=== PATIENT | female | born 1950 | race Caucasian/White ===

== ENCOUNTER 2019-07-05 12:04 | Inpatient (IN) | payer MEDICARE, MEDICAID ==
[~2019-07-05] VITALS: Ht 147.3 cm; Wt 60.7 kg
[2019-07-05 13:09] LABS: Hematocrit 44.3 % (36.0-46.0); Mean Corpuscular Hemoglobin 27.5 pg (28.0-32.0); Mean Corpuscular Hgb Conc. 33.9 g/dL (32.0-36.0); Platelet Count (auto) 308 10^3/uL (140-450); Red Blood Cells 5.47 10^6/uL (4.0-5.20); Red Cell Distribution Width 14.6 % (11.8-14.3)
[2019-07-05 13:15] LABS: White Blood Cell 32.3 10^3/uL (4.4-10.8)
[2019-07-05] MEDS ORDERED: LIDOCAINE VISCOUS 2% 15ML UD PO ONE (13:15)
[2019-07-05] MEDS ORDERED: ALUM & MAG HYDROX-SIMETH LIQ(MAALOX) 30 ML PO ONE (13:15)
[2019-07-05 13:16] LABS: Basophils % (manual) 0 (0.0-2.0); Blast Cells 0; Myelocytes % 0; Promyelocytes % 0; Reactive Lymphocytes 0
[2019-07-05 13:30] LABS: Albumin 3.6 g/dL (3.4-5.0); Anion Gap 10 (5-15); Blood Urea Nitrogen 21 mg/dL (7-18); Calcium 9.8 mg/dL (8.5-10.1); Carbon Dioxide 25 mmol/L (21-32); Chloride 97 mmol/L (98-107); Glucose 142 mg/dL (74-106); Lipase 60 U/L (73-393); Potassium 4.2 mmol/L (3.5-5.1); Sodium 132 mmol/L (136-145)
[2019-07-05] MEDS ORDERED: LORazepam 2MG/ML-1ML VIAL IM ONE (13:30)
[2019-07-05 13:36] LABS: Alanine Aminotransferase 36 U/L (13-56); Alkaline Phosphatase 105 U/L (45-117); Aspartate Aminotransferase 29 U/L (15-37); BUN/Creatinine Ratio 18.4; Bilirubin, Total 0.7 mg/dL (0.2-1.0); GFR African American 61 mL/min; GFR Non-African American 50 mL/min; Total Protein 8.1 g/dL (6.4-8.2)
[2019-07-05 14:41] LABS: Band Neutrophils % (manual) 6; Eosinophils % (manual) 1 (0-7); Lymphocytes % (manual) 2 (10.0-50.0)
[2019-07-05 14:50] LABS: Metamyelocytes % 2; Monocytes % (manual) 9 (0-12)
[2019-07-05] MEDS ORDERED: PIPERACILLIN-TAZOB 3.375GM 100 ML IV ONE (16:00)
[2019-07-05] MEDS ORDERED: SODIUM CHLORIDE 0.9% 1,000 ML IV ONE (16:15)
[2019-07-05] MEDS ORDERED: ONDANSETRON HCL 4 MG/2 ML VIAL IV PRN (16:15)
[2019-07-05] MEDS ORDERED: NITROGLYCERIN 0.4 MG SL TAB SL PRN (16:15)
[2019-07-05] MEDS ORDERED: POTASSIUM CHLORIDE 10 MEQ in SODIUM CHLORIDE 0.9% 1,000 ML IV SCH (16:15)
[2019-07-05] MEDS ORDERED: MORPHINE SULF INJ 2 MG/ML SYRINGE 1ML IV PRN (16:15)
[2019-07-05 16:45] LABS: INR 1.19 (0.9-1.15); Partial Thromboplastin Time 33.9 sec (23.64-32.05)
[2019-07-05 16:52] LABS: Lactic Acid w/Reflex 2.1 mmol/L (0.4-2.0)
[2019-07-05 20:00] VITALS: BP 123/73
[2019-07-05] MEDS: MORPHINE SULF INJ 2 MG/ML SYRINGE 1ML IV PRN (20:55)
[2019-07-05] MEDS: metroNIDAZOLE 500MG/100ML 100 ML IV SCH (21:43)
[2019-07-05 22:00] VITALS: BP 123/73
[2019-07-06 05:00] VITALS: BP 114/53
[2019-07-06] MEDS: metroNIDAZOLE 500MG/100ML 100 ML IV SCH ×3 (05:29→21:39)
[2019-07-06 08:00] VITALS: BP 113/69
[2019-07-06 08:14] LABS: Hemoglobin 13.9 g/dL (12.2-16.2); Mean Corpuscular Hemoglobin 26.9 pg (28.0-32.0); Red Blood Cells 5.18 10^6/uL (4.0-5.20)
[2019-07-06 08:15] LABS: Hematocrit 42.1 % (36.0-46.0); Mean Corpuscular Hgb Conc. 33.2 g/dL (32.0-36.0); Mean Corpuscular Volume 81.2 fL (80.0-100.0); Platelet Count (auto) 277 10^3/uL (140-450); Red Cell Distribution Width 14.9 % (11.8-14.3); White Blood Cell 25.8 10^3/uL (4.4-10.8)
[2019-07-06 08:23] LABS: Albumin 2.8 g/dL (3.4-5.0); Calcium 8.7 mg/dL (8.5-10.1); Potassium 4.5 mmol/L (3.5-5.1)
[2019-07-06 08:29] LABS: BUN/Creatinine Ratio 18.1; Bilirubin, Total 0.6 mg/dL (0.2-1.0); Total Protein 6.8 g/dL (6.4-8.2)
[2019-07-06 08:34] LABS: Basophils % (manual) 0 (0.0-2.0); Blast Cells 0; Eosinophils % (manual) 0 (0-7); Metamyelocytes % 0; Promyelocytes % 0; Reactive Lymphocytes 0
[2019-07-06 09:16] LABS: Band Neutrophils % (manual) 6; Lymphocytes % (manual) 3 (10.0-50.0); Monocytes % (manual) 5 (0-12); Myelocytes % 1
[2019-07-06] MEDS: cefTRIAXone 1GM/50ML D5W 50 ML IV SCH (09:25)
[2019-07-06] MEDS: MORPHINE SULF INJ 2 MG/ML SYRINGE 1ML IV PRN (09:26)
[2019-07-06] MEDS ORDERED: D5W/LACTATED RINGERS 1,000 ML IV SCH (10:00)
[2019-07-06] MEDS: THIAMINE 100mg/ml INJ (200mg/2ml VIAL) IV SCH (10:31)
[2019-07-06] MEDS: PANTOPRAZOLE 40 MG/10 ML VIAL INJ IV SCH (10:31)
[2019-07-06] MEDS: FOLIC ACID 1 MG in D5W 5% 50 ML IV SCH (11:20)
[2019-07-06 12:00] VITALS: BP 118/69
[2019-07-06 13:48] LABS: INR 1.24 (0.9-1.15); Partial Thromboplastin Time 33.6 sec (23.64-32.05)
[2019-07-06] MEDS ORDERED: ceFAZolin 1GM/50ML 50 ML IV ONE (13:54)
[2019-07-06] MEDS ORDERED: fentaNYL CITRATE 100 MCG/2 ML VL ONE (14:10)
[2019-07-06] MEDS ORDERED: SUCCINYLCHOLINE CHLORIDE 20 MG/ML 10ML VIAL IV ONE (14:10)
[2019-07-06] MEDS ORDERED: ROCURONIUM 10MG/ML 10ML VIAL IV ONE (14:16)
[2019-07-06] MEDS ORDERED: METOCLOPRAMIDE HCL 5MG/ml INJ 2ml VIAL ONE (14:38)
[2019-07-06] MEDS ORDERED: PROPOFOL 10 MG/ML 20 ML IV ONE (14:39)
[2019-07-06] MEDS ORDERED: LABETALOL HCL 5 MG/ML ML 20ML VIAL IV ONE (15:09)
[2019-07-06] MEDS: HYDROmorphone HCL 2 MG/ML VL IV PRN ×2 (15:38→15:54)
[2019-07-06 17:00] VITALS: BP 109/61
[2019-07-06] MEDS: D5W/LACTATED RINGERS 1,000 ML IV SCH (17:01)
[2019-07-06 20:00] VITALS: BP 87/51
[2019-07-06 22:00] VITALS: BP 87/51
[2019-07-06] MEDS ORDERED: SODIUM CHLORIDE 0.9% 2,000 ML IV ONE (22:00)
[2019-07-07 04:56] VITALS: BP 122/71
[2019-07-07] MEDS: metroNIDAZOLE 500MG/100ML 100 ML IV SCH ×3 (05:25→21:55)
[2019-07-07] MEDS: D5W/LACTATED RINGERS 1,000 ML IV SCH ×3 (06:20→23:07)
[2019-07-07 06:28] LABS: Basophils # (auto) 0 10 ^3/uL (0-0.2); Basophils % (auto) 0.1 % (0.0-2.0); Eosinophils # (auto) 0 10 ^3/uL (0-0.8); Hematocrit 33.9 % (36.0-46.0); Hemoglobin 11.3 g/dL (12.2-16.2); Lymphocytes % (auto) 7.1 % (10.0-50.0); Mean Corpuscular Hemoglobin 27.4 pg (28.0-32.0); Mean Corpuscular Hgb Conc. 33.5 g/dL (32.0-36.0); Mean Corpuscular Volume 81.8 fL (80.0-100.0); Monocytes # (auto) 1.4 10 ^3/uL (0-1.3); Monocytes % (auto) 9.3 % (0.0-12.0); Neutrophils # (auto) 12.2 10 ^3/uL (1.6-8.6); Neutrophils % (auto) 83.5 % (37.0-80.0); Platelet Count (auto) 190 10^3/uL (140-450); Red Blood Cells 4.14 10^6/uL (4.0-5.20); Red Cell Distribution Width 14.8 % (11.8-14.3); White Blood Cell 14.6 10^3/uL (4.4-10.8)
[2019-07-07 06:41] LABS: INR 1.18 (0.9-1.15); Partial Thromboplastin Time 33.6 sec (23.64-32.05)
[2019-07-07 06:46] LABS: Potassium 3.7 mmol/L (3.5-5.1)
[2019-07-07 06:53] LABS: Albumin 2.1 g/dL (3.4-5.0); BUN/Creatinine Ratio 15.2; Bilirubin, Total 0.3 mg/dL (0.2-1.0); Total Protein 5.8 g/dL (6.4-8.2)
[2019-07-07] MEDS: cefTRIAXone 1GM/50ML D5W 50 ML IV SCH (08:50)
[2019-07-07] MEDS: MORPHINE SULF INJ 2 MG/ML SYRINGE 1ML IV PRN ×2 (08:51→22:41)
[2019-07-07 09:00] VITALS: BP 132/79
[2019-07-07] MEDS: PANTOPRAZOLE 40 MG/10 ML VIAL INJ IV SCH (09:49)
[2019-07-07] MEDS: FOLIC ACID 1 MG in D5W 5% 50 ML IV SCH (09:49)
[2019-07-07] MEDS: THIAMINE 100mg/ml INJ (200mg/2ml VIAL) IV SCH (09:50)
[2019-07-07] MEDS: ACETAMINOPHEN 500 MG TAB PO PRN (16:48)
[2019-07-07 17:00] VITALS: BP 134/69
[2019-07-07 21:41] VITALS: BP_SYST 147; BP_SYST 156; BP_DIAS 77; BP_DIAS 80
[2019-07-08] MEDS: ACETAMINOPHEN 500 MG TAB PO PRN (01:37)
[2019-07-08 05:00] VITALS: BP 134/73
[2019-07-08 05:40] LABS: Basophils # (auto) 0 10 ^3/uL (0-0.2); Basophils % (auto) 0.2 % (0.0-2.0); Eosinophils # (auto) 0.3 10 ^3/uL (0-0.8); Eosinophils % (auto) 2.1 % (0.0-7.0); Hematocrit 32.4 % (36.0-46.0); Lymphocytes # (auto) 1.5 10 ^3/uL (0.4-5.4); Mean Corpuscular Hemoglobin 27.5 pg (28.0-32.0); Mean Corpuscular Hgb Conc. 33.9 g/dL (32.0-36.0); Mean Corpuscular Volume 81.2 fL (80.0-100.0); Monocytes # (auto) 1.4 10 ^3/uL (0-1.3); Monocytes % (auto) 11.2 % (0.0-12.0); Neutrophils % (auto) 74.5 % (37.0-80.0); Platelet Count (auto) 208 10^3/uL (140-450); Red Blood Cells 3.99 10^6/uL (4.0-5.20); Red Cell Distribution Width 14.8 % (11.8-14.3)
[2019-07-08 05:57] LABS: Albumin 2.1 g/dL (3.4-5.0); Potassium 3.1 mmol/L (3.5-5.1)
[2019-07-08 06:03] LABS: BUN/Creatinine Ratio 10.9; Bilirubin, Total 0.3 mg/dL (0.2-1.0); Total Protein 5.9 g/dL (6.4-8.2)
[2019-07-08] MEDS: metroNIDAZOLE 500MG/100ML 100 ML IV SCH ×3 (06:31→21:25)
[2019-07-08 08:17] VITALS: BP 138/73
[2019-07-08] MEDS: D5W/LACTATED RINGERS 1,000 ML IV SCH ×2 (08:59→18:23)
[2019-07-08] MEDS: cefTRIAXone 1GM/50ML D5W 50 ML IV SCH (09:31)
[2019-07-08] MEDS: THIAMINE 100mg/ml INJ (200mg/2ml VIAL) IV SCH (10:00)
[2019-07-08] MEDS: PANTOPRAZOLE 40 MG/10 ML VIAL INJ IV SCH (11:30)
[2019-07-08] MEDS ORDERED: POTASSIUM CHL 20 Meq TABLET PO ONE (11:30)
[2019-07-08] MEDS: FOLIC ACID 1 MG in D5W 5% 50 ML IV SCH (11:30)
[2019-07-08 13:45] VITALS: BP 150/88
[2019-07-08 17:16] VITALS: BP 135/74
[2019-07-08 21:22] VITALS: BP 136/68
[2019-07-09 05:00] VITALS: BP 144/84
[2019-07-09] MEDS: D5W/LACTATED RINGERS 1,000 ML IV SCH ×2 (05:29→14:59)
[2019-07-09] MEDS: metroNIDAZOLE 500MG/100ML 100 ML IV SCH ×3 (06:02→21:16)
[2019-07-09 06:39] LABS: Basophils # (auto) 0 10 ^3/uL (0-0.2); Basophils % (auto) 0.3 % (0.0-2.0); Eosinophils # (auto) 0.2 10 ^3/uL (0-0.8); Eosinophils % (auto) 1.6 % (0.0-7.0); Hematocrit 33.7 % (36.0-46.0); Hemoglobin 11.4 g/dL (12.2-16.2); Lymphocytes # (auto) 1.6 10 ^3/uL (0.4-5.4); Mean Corpuscular Hemoglobin 27.3 pg (28.0-32.0); Mean Corpuscular Hgb Conc. 33.8 g/dL (32.0-36.0); Mean Corpuscular Volume 80.8 fL (80.0-100.0); Monocytes # (auto) 1.4 10 ^3/uL (0-1.3); Monocytes % (auto) 11.6 % (0.0-12.0); Neutrophils # (auto) 8.4 10 ^3/uL (1.6-8.6); Neutrophils % (auto) 72.5 % (37.0-80.0); Nucleated Red Blood Cells % 0.1 %; Platelet Count (auto) 275 10^3/uL (140-450); Red Blood Cells 4.17 10^6/uL (4.0-5.20); Red Cell Distribution Width 15.1 % (11.8-14.3); White Blood Cell 11.6 10^3/uL (4.4-10.8)
[2019-07-09 06:56] LABS: Albumin 2.2 g/dL (3.4-5.0); Calcium 8.1 mg/dL (8.5-10.1); Potassium 3.3 mmol/L (3.5-5.1)
[2019-07-09 07:01] LABS: BUN/Creatinine Ratio 8.9; Bilirubin, Total 0.4 mg/dL (0.2-1.0); Total Protein 6.1 g/dL (6.4-8.2)
[2019-07-09 08:00] VITALS: BP 128/78
[2019-07-09 09:00] VITALS: BP_SYST 134; BP_SYST 95; BP_DIAS 68; BP_DIAS 90
[2019-07-09] MEDS: cefTRIAXone 1GM/50ML D5W 50 ML IV SCH (09:19)
[2019-07-09] MEDS: THIAMINE 100mg/ml INJ (200mg/2ml VIAL) IV SCH (09:24)
[2019-07-09] MEDS: PANTOPRAZOLE 40 MG/10 ML VIAL INJ IV SCH (09:24)
[2019-07-09 16:41] VITALS: BP 136/70
[2019-07-09 22:05] VITALS: BP 135/68
[2019-07-10 05:00] VITALS: BP 121/59
[2019-07-10] MEDS: metroNIDAZOLE 500MG/100ML 100 ML IV SCH ×2 (06:02→14:49)
[2019-07-10] MEDS: D5W/LACTATED RINGERS 1,000 ML IV SCH ×2 (06:03→10:59)
[2019-07-10 06:50] LABS: Basophils # (auto) 0.1 10 ^3/uL (0-0.2); Eosinophils # (auto) 0.2 10 ^3/uL (0-0.8); Eosinophils % (auto) 1.6 % (0.0-7.0); Hemoglobin 10.8 g/dL (12.2-16.2); Lymphocytes # (auto) 1.9 10 ^3/uL (0.4-5.4); Monocytes # (auto) 1.8 10 ^3/uL (0-1.3); Platelet Count (auto) 306 10^3/uL (140-450)
[2019-07-10 06:53] LABS: Basophils % (auto) 0.5 % (0.0-2.0); Hematocrit 31.9 % (36.0-46.0); Mean Corpuscular Hemoglobin 27.1 pg (28.0-32.0); Mean Corpuscular Hgb Conc. 33.7 g/dL (32.0-36.0); Mean Corpuscular Volume 80.4 fL (80.0-100.0); Monocytes % (auto) 14.5 % (0.0-12.0); Neutrophils # (auto) 8.7 10 ^3/uL (1.6-8.6); Neutrophils % (auto) 68.4 % (37.0-80.0); Red Blood Cells 3.97 10^6/uL (4.0-5.20); Red Cell Distribution Width 14.8 % (11.8-14.3); White Blood Cell 12.6 10^3/uL (4.4-10.8)
[2019-07-10 07:05] LABS: Albumin 2.3 g/dL (3.4-5.0); BUN/Creatinine Ratio 16.3; Calcium 8.2 mg/dL (8.5-10.1); Potassium 3.3 mmol/L (3.5-5.1)
[2019-07-10 07:08] LABS: Bilirubin, Total 0.3 mg/dL (0.2-1.0); Total Protein 5.8 g/dL (6.4-8.2)
[2019-07-10 08:40] VITALS: BP 124/65
[2019-07-10] MEDS: PANTOPRAZOLE 40 MG/10 ML VIAL INJ IV SCH (09:21)
[2019-07-10] MEDS: cefTRIAXone 1GM/50ML D5W 50 ML IV SCH (09:21)
[2019-07-10 12:30] VITALS: BP_SYST 124; BP_SYST 131; BP_DIAS 74; BP_DIAS 79
== END 2019-07-10 16:54 | disposition home health service (06) | DRG 853 ==
LOC: ER 12:04 → TELE-WESTW 12:05
PROVIDERS: ADMIT Nurse Practitioner Acute Care; ATTEND Family Medicine
PROC: 0DNW4ZZ Release Peritoneum, Percutaneous Endoscopic Approach (ICD-10-PCS; 2019-07-06)
PROC: 0FT44ZZ Resection of Gallbladder, Percutaneous Endoscopic Approach (ICD-10-PCS; principal; 2019-07-06 14:09)
DX: A41.9 Sepsis, unspecified organism (principal); N17.0 Acute kidney failure with tubular necrosis; E87.1 Hypo-osmolality and hyponatremia; E44.0 Moderate protein-calorie malnutrition; K80.00 Calculus of gallbladder with acute cholecystitis without obstruction; K29.70 Gastritis, unspecified, without bleeding; E86.0 Dehydration; N18.3 Chronic kidney disease, stage 3 (moderate); E87.6 Hypokalemia; E66.9 Obesity, unspecified; K66.0 Peritoneal adhesions (postprocedural) (postinfection); D64.9 Anemia, unspecified; B96.1 Klebsiella pneumoniae [K. pneumoniae] as the cause of diseases classified elsewhere; Z68.28 Body mass index [BMI] 28.0-28.9, adult
CPT/HCPCS: 36415; 71045; 74176; 76705; 80053; 83605; 83690; 84484; 85007; 85025; 85027; 85610; 85730; 86850; 86900; 86901; 87040; 87077; 87186; 93005; 93306; 96365; 96372; C9113; G0378; J0330; J0690; J0696; J2405; J2543; J2704; J3490; J7060